=== PATIENT | female | born 1980 | race Caucasian/White ===

== ENCOUNTER → 2016-11-12 | Outpatient (CLI) | payer OTHER ==
[~2016-11-12] MED LIST: DENIES; IBUP-1222 PO; LABE100T3 PO; NIFE60TA2 PO; OXYC-302 PO; PREN1TAB27 PO
== END | disposition home or self-care (01) ==
LOC: CFH 14:20
PROVIDERS: ATTEND Nurse Practitioner
DX: K76.0 Fatty (change of) liver, not elsewhere classified (principal); R16.0 Hepatomegaly, not elsewhere classified; K80.20 Calculus of gallbladder without cholecystitis without obstruction
CPT/HCPCS: 76700

== ENCOUNTER 2016-11-30 10:50 | Inpatient (IN) | payer OTHER ==
[~2016-11-30] VITALS: Ht 162.6 cm; Wt 100.1 kg
[2016-11-30] MEDS ORDERED: SODIUM CHLORIDE 0.9% 1,000 ML IV ONE (11:19)
[2016-11-30] MEDS ORDERED: ONDANSETRON 2MG/ML, 2ML IVPush ONE (11:30)
[2016-11-30] MEDS ORDERED: MORPHINE SULFATE 4 MG/ML, 1ML IVPush PRN (11:30)
[2016-11-30] MEDS ORDERED: SODIUM CHLORIDE FLUSH 10ML SYR IVF ONE (11:30)
[2016-11-30 11:48] LABS: BLOOD UREA NITROGEN 7 mg/dL (7-18)
[2016-11-30 11:51] LABS: ASPARTATE AMINO TRANSFERASE 246 U/L (15-37)
[2016-11-30] MEDS ORDERED: ENALAPRILAT 1.25 MG/ML, 2ML IVPush PRN (14:00)
[2016-11-30] MEDS ORDERED: ONDANSETRON 2MG/ML, 2ML IVPush PRN (14:00)
[2016-11-30] MEDS ORDERED: DEXTROSE 4 GM TAB.CHEW PO PRN (14:30)
[2016-11-30] MEDS ORDERED: GLUCAGON 1 MG IM PRN (14:30)
[2016-11-30] MEDS ORDERED: DEXTROSE 50%, 50ML SYRINGE IVPush PRN (14:30)
[2016-11-30 14:43] VITALS: BP 163/104
[2016-11-30] MEDS: AMPICILLIN/SULBACTAM 3 GM in SODIUM CHLORIDE 0.9% 100 ML IV SCH ×2 (15:47→22:03)
[2016-11-30] MEDS: SODIUM CHLORIDE 0.9% 1,000 ML IV SCH ×2 (15:48→22:03)
[2016-11-30] MEDS: morphine SULFATE 10 MG/ML, 1ML IVPush PRN (15:53)
[2016-11-30] MEDS ORDERED: INSULIN ASPART 100 UNITS/ML, PEN SQ-INSULIN SCH (16:00)
[2016-11-30] MEDS: ENOXAPARIN 40 MG/0.4 ML SQ SCH (16:20)
[2016-11-30 19:10] VITALS: BP 144/96
[2016-11-30] MEDS: SODIUM CHLORIDE FLUSH 10ML SYR IVF SCH (21:00)
[2016-12-01 02:00] VITALS: BP 143/94
[2016-12-01] MEDS: AMPICILLIN/SULBACTAM 3 GM in SODIUM CHLORIDE 0.9% 100 ML IV SCH ×4 (03:08→21:06)
[2016-12-01 05:57] LABS: ASPARTATE AMINO TRANSFERASE 166 U/L (15-37); BLOOD UREA NITROGEN 6 mg/dL (7-18)
[2016-12-01] MEDS: INSULIN ASPART 100 UNITS/ML, PEN SQ-INSULIN SCH ×4 (06:00→17:57)
[2016-12-01] MEDS: SODIUM CHLORIDE 0.9% 1,000 ML IV SCH ×2 (06:08→11:40)
[2016-12-01 07:12] VITALS: BP 142/97
[2016-12-01] MEDS: SODIUM CHLORIDE FLUSH 10ML SYR IVF SCH ×2 (08:56→21:00)
[2016-12-01] MEDS ORDERED: ROCURONIUM 10 MG/ML ONE (09:54)
[2016-12-01] MEDS ORDERED: SUCCINYLCHOLINE 20 MG/ML, 10ML ONE (09:54)
[2016-12-01] MEDS ORDERED: PROPOFOL 10 MG/ML, 20ML ONE (09:54)
[2016-12-01] MEDS ORDERED: FENTANYL PF 250 MCG/5ML ONE (09:54)
[2016-12-01] MEDS ORDERED: DEXAMETHASONE 4 MG/ML, 1ML ONE (09:54)
[2016-12-01] MEDS ORDERED: ONDANSETRON 2MG/ML, 2ML ONE (09:54)
[2016-12-01] MEDS ORDERED: MIDAZOLAM 1 MG/ML, 2ML ONE (09:55)
[2016-12-01] MEDS ORDERED: OMNIPAQUE 350 MG/ML, 50 ML BOTTLE ONE (10:46)
[2016-12-01] MEDS ORDERED: ACETAMINOPHEN 325 MG TABLET PO PRN (11:00)
[2016-12-01] MEDS ORDERED: FENTANYL PF 100 MCG/2ML IV PRN (11:00)
[2016-12-01] MEDS ORDERED: OXYcodone 5 MG/5 ML ORAL.SOL UDC PO PRN (11:00)
[2016-12-01] MEDS ORDERED: hydrALAzine 20 MG/ML, 1ML IV PRN (11:00)
[2016-12-01] MEDS ORDERED: METOCLOPRAMIDE 5 MG/ML, 2ML IV PRN (11:00)
[2016-12-01] MEDS ORDERED: LABETALOL 5MG/ML, 20ML IV PRN (11:00)
[2016-12-01] MEDS ORDERED: HYDROmorphone 1 MG/ML, 1ML IV PRN (11:00)
[2016-12-01] MEDS ORDERED: ONDANSETRON 2MG/ML, 2ML IVPush PRN (11:00)
[2016-12-01] MEDS ORDERED: INDOMETHACIN 50 MG SUPP.RECT ONE (11:04)
[2016-12-01] MEDS ORDERED: INDOMETHACIN 50 MG SUPP.RECT PR ONE (11:30)
[2016-12-01] MEDS ORDERED: LACTATED RINGERS 1,000 ML IV ONE (12:00)
[2016-12-01 12:11] VITALS: BP 158/95
[2016-12-01] MEDS ORDERED: LACTATED RINGERS 1,000 ML IV SCH (13:00)
[2016-12-01] MEDS ORDERED: D5%-0.45NACL+KCL 40MEQ 1,000 ML IV SCH (14:00)
[2016-12-01] MEDS ORDERED: OMNIPAQUE 350 MG/ML, 75ML BOTTLE ONE (15:02)
[2016-12-01] MEDS: ENOXAPARIN 40 MG/0.4 ML SQ SCH (15:15)
[2016-12-01 21:11] VITALS: BP 155/92
[2016-12-01] MEDS: D5%-0.45NACL+KCL 40MEQ 1,000 ML IV SCH (23:08)
[2016-12-02 02:10] VITALS: BP 127/79
[2016-12-02] MEDS: AMPICILLIN/SULBACTAM 3 GM in SODIUM CHLORIDE 0.9% 100 ML IV SCH ×4 (03:06→20:35)
[2016-12-02] MEDS: morphine SULFATE 10 MG/ML, 1ML IVPush PRN (05:40)
[2016-12-02 06:15] LABS: ASPARTATE AMINO TRANSFERASE 106 U/L (15-37); BLOOD UREA NITROGEN 3 mg/dL (7-18)
[2016-12-02 06:45] VITALS: BP 138/86
[2016-12-02] MEDS: INSULIN ASPART 100 UNITS/ML, PEN SQ-INSULIN SCH ×4 (07:00→21:00)
[2016-12-02] MEDS: SODIUM CHLORIDE FLUSH 10ML SYR IVF SCH ×2 (09:00→21:00)
[2016-12-02] MEDS: D5%-0.45NACL+KCL 40MEQ 1,000 ML IV SCH (09:13)
[2016-12-02] MEDS: LACTATED RINGERS 1,000 ML IV SCH ×2 (12:32→16:40)
[2016-12-02] MEDS: ENOXAPARIN 40 MG/0.4 ML SQ SCH (15:30)
[2016-12-02] MEDS ORDERED: BUPIVACAINE/PF-EPI 0.5% 1:200K ONE (15:43)
[2016-12-02] MEDS ORDERED: FENTANYL PF 100 MCG/2ML ONE ×3 (15:49→17:32)
[2016-12-02] MEDS ORDERED: MIDAZOLAM 1 MG/ML, 2ML ONE (15:49)
[2016-12-02] MEDS ORDERED: CEFAZOLIN 1,000 MG ONE (15:51)
[2016-12-02] MEDS ORDERED: ONDANSETRON 2MG/ML, 2ML ONE (15:51)
[2016-12-02] MEDS ORDERED: NEOSTIGMINE 1 MG/ML, 10ML ONE (15:51)
[2016-12-02] MEDS ORDERED: ROCURONIUM 10 MG/ML ONE (15:51)
[2016-12-02] MEDS ORDERED: DEXAMETHASONE 4 MG/ML, 1ML ONE (15:51)
[2016-12-02] MEDS ORDERED: PROPOFOL 10 MG/ML, 20ML ONE (15:51)
[2016-12-02] MEDS ORDERED: GLYCOPYRROLATE 0.2MG/1ML ONE (15:51)
[2016-12-02] MEDS ORDERED: BUPIVACAINE/PF-EPI 0.25% 1:200K ONE (16:02)
[2016-12-02] MEDS ORDERED: ONDANSETRON 2MG/ML, 2ML IVPush PRN (16:30)
[2016-12-02] MEDS ORDERED: ACETAMINOPHEN 325 MG TABLET PO PRN (16:30)
[2016-12-02] MEDS ORDERED: ALBUTEROL SULFATE 2.5 MG/3 ML NPPB PRN (16:30)
[2016-12-02] MEDS ORDERED: METOPROLOL 1 MG/ML, 5ML IV PRN (16:30)
[2016-12-02] MEDS ORDERED: hydrALAzine 20 MG/ML, 1ML IV PRN (16:30)
[2016-12-02] MEDS ORDERED: MEPERIDINE/PF 25MG/0.5ML IVPush PRN (16:30)
[2016-12-02] MEDS ORDERED: FENTANYL PF 100 MCG/2ML IV PRN (16:30)
[2016-12-02] MEDS ORDERED: OXYcodone 5 MG/5 ML ORAL.SOL UDC PO PRN (16:30)
[2016-12-02] MEDS ORDERED: EPHEDRINE 50 MG/ML, 1ML IVPush PRN (16:30)
[2016-12-02] MEDS ORDERED: HYDROmorphone 1 MG/ML, 1ML IV PRN ×2 (16:30→18:30)
[2016-12-02] MEDS ORDERED: LABETALOL 5MG/ML, 20ML IV PRN (16:30)
[2016-12-02] MEDS ORDERED: OXYcodone 5 MG/5 ML ORAL.SOL UDC ONE (17:32)
[2016-12-02] MEDS ORDERED: KETOROLAC 30 MG/1 ML ONE (17:41)
[2016-12-02] MEDS ORDERED: KETOROLAC 30 MG/1 ML IVPush ONE (18:00)
[2016-12-02] MEDS ORDERED: LACTATED RINGERS 1,000 ML IV SCH (19:00)
[2016-12-02 19:27] LABS: HCG UR OBC PASS
[2016-12-02 19:34] VITALS: BP 137/88
[2016-12-02] MEDS: OXYcodone IR 5MG TABLET PO PRN (20:33)
[2016-12-02] MEDS ORDERED: D5%-0.45NACL+KCL 40MEQ 1,000 ML IV SCH (22:30)
[2016-12-03] VITALS (9 sets, daily range): BP systolic 127–168; BP diastolic 86–113
[2016-12-03] MEDS: AMPICILLIN/SULBACTAM 3 GM in SODIUM CHLORIDE 0.9% 100 ML IV SCH ×4 (03:32→22:17)
[2016-12-03] MEDS: OXYcodone IR 5MG TABLET PO PRN ×6 (03:32→22:17)
[2016-12-03 05:40] LABS: ASPARTATE AMINO TRANSFERASE 146 U/L (15-37); BLOOD UREA NITROGEN 4 mg/dL (7-18)
[2016-12-03] MEDS: INSULIN ASPART 100 UNITS/ML, PEN SQ-INSULIN SCH ×2 (05:46→11:00)
[2016-12-03] MEDS: SODIUM CHLORIDE FLUSH 10ML SYR IVF SCH ×2 (09:00→22:17)
[2016-12-03] MEDS: ENOXAPARIN 40 MG/0.4 ML SQ SCH (15:10)
[2016-12-04] MEDS: OXYcodone IR 5MG TABLET PO PRN ×4 (01:23→14:23)
[2016-12-04 02:14] VITALS: BP 143/97
[2016-12-04] MEDS: AMPICILLIN/SULBACTAM 3 GM in SODIUM CHLORIDE 0.9% 100 ML IV SCH ×2 (03:36→09:14)
[2016-12-04 06:36] VITALS: BP 147/99
[2016-12-04 08:11] VITALS: BP 138/96
[2016-12-04 09:54] LABS: ASPARTATE AMINO TRANSFERASE 99 U/L (15-37); BLOOD UREA NITROGEN 5 mg/dL (7-18)
[2016-12-04 11:51] VITALS: BP 144/98
[2016-12-04 13:39] VITALS: BP 138/96
[2016-12-04] MEDS ORDERED: AMOX1TAB64 PO (13:39)
[2016-12-04] MEDS ORDERED: LACT1CAP24 PO (13:39)
[2016-12-04] MEDS ORDERED: OXYC5TAB3 PO (13:39)
== END 2016-12-04 15:25 | disposition home or self-care (01) | DRG 417 ==
LOC: ED 11:54 → EDIP 13:01 → 4NOR 14:35 → DCLOUNGE 12-04 14:36
PROVIDERS: ADMIT Internal Medicine; ATTEND Internal Medicine
PROC: 0F798ZZ Dilation of Common Bile Duct, Via Natural or Artificial Opening Endoscopic (ICD-10-PCS; 2016-12-01)
PROC: 0FC98ZZ Extirpation of Matter from Common Bile Duct, Via Natural or Artificial Opening Endoscopic (ICD-10-PCS; 2016-12-01)
PROC: 0FT44ZZ Resection of Gallbladder, Percutaneous Endoscopic Approach (ICD-10-PCS; principal; 2016-12-02 20:00)
DX: K80.67 Calculus of gallbladder and bile duct with acute and chronic cholecystitis with obstruction (principal); K85.10 Biliary acute pancreatitis without necrosis or infection; E66.01 Morbid (severe) obesity due to excess calories; K11.21 Acute sialoadenitis; K76.0 Fatty (change of) liver, not elsewhere classified; E87.6 Hypokalemia; E16.2 Hypoglycemia, unspecified; K59.00 Constipation, unspecified; I10 Essential (primary) hypertension; Z82.49 Family history of ischemic heart disease and other diseases of the circulatory system; Z83.3 Family history of diabetes mellitus; Z68.37 Body mass index [BMI] 37.0-37.9, adult
CPT/HCPCS: 36415; 70487; 74181; 74328; 76700; 80053; 80061; 81025; 82150; 82962; 83690; 83735; 84100; 85025; 85610; 88304; 93005; 96360; 96361; C1729; J0295; J0690; J1100; J1650; J1885; J2250; J2405; J2704; J2710; J3010; J3490; Q9967; C1769; J0330; J2270; J3480; J7030; J7120

== ENCOUNTER → 2020-06-23 | Outpatient (CLI) | payer OTHER ==
[~2020-06-23] MED LIST changes: +AMOX1TAB64 PO; -LABE100T3 PO; +LABE100T6 PO; +LACT1CAP24 PO; +OXYC5TAB3 PO
== END | disposition home or self-care (01) ==
LOC: CFH 12:41
PROVIDERS: ATTEND Physician Assistant Medical
DX: Z12.31 Encounter for screening mammogram for malignant neoplasm of breast (principal)
CPT/HCPCS: 77063; 77067